=== PATIENT | male | born 1995 | race Caucasian/White ===

== ENCOUNTER 2020-06-19 22:40 | Emergency (ER) | payer OTHER, SELFPAY ==
[2020-06-19 22:41] VITALS: BP 158/83; PULSE 94; RESP 18; TEMP 36.3; O2SAT 98; BMI 28.7
--- NOTE | 2020-06-19 23:01 | ED.VISSUMM ---
- ER Visit Summary Date of Service: 06/19/20 Chief Complaint: Left third finger laceration History of Present Illness: The patient is a 24 M who presents with a finger laceration. Occurred at work about 1 hour ago. He was working with a piece of wire when he cut his left third finger. His last tetanus is unknown. He denies any numbness or tingling. He denies any loss of function to the finger. He denies any other injuries. Physical Examination: Signs are reviewed. Left hand exam reveals a 1.5 cm laceration of the left third finger on the radial side between the DIP and PIP joint. Sensation is intact distally. He has full range of motion without pain. Test Results: None performed Emergency Department Course and Treatment: Patient's tetanus was updated. Laceration was repaired per procedure note. Lidocaine was used to anesthetize area after cleansing with chlorhexidine. 3, 5?0 simple nylon sutures were placed. There was good wound approximation. Patient will have sutures out in 7 to 10 days. Worker's Compensation forms were filled out. Treatment Plan: [] Disposition: Discharge Impression: Left third finger laceration, 1.5 cm Laceration repair by ED physician. This note was generated with [employer] dictation software. It may contain incorrect words, spelling, and punctuation that were not noted in review of the chart prior to signing ED Disposition - Plan for ED Patient: Disposition: Home or Assisted Living Instructions: ED Laceration: All Closures Referrals: NOT,DEFINED [Primary Care Provider] -
[2020-06-19] MEDS: Lidocaine 1% (20 ml mdv) 20 ML Vial INFILT (23:04)
[2020-06-19] MEDS: Diphth,Pertuss(Acell),Tet Vac 0.5 ML Vial IM (23:11)
== END 2020-06-19 23:44 | disposition home or self-care (01) ==
LOC: ED 23:11
PROVIDERS: Emergency Provider Emergency Medicine
DX: S61.213A Laceration without foreign body of left middle finger without damage to nail, initial encounter (principal); Z23 Encounter for immunization; W26.8XXA Contact with other sharp object(s), not elsewhere classified, initial encounter; Y93.89 Activity, other specified; Y92.89 Other specified places as the place of occurrence of the external cause; Y99.0 Civilian activity done for income or pay
CPT/HCPCS: 12001; 90471; 90715; 99283

== ENCOUNTER → 2020-08-20 17:01 | Outpatient (CLI) | payer BC, SELFPAY ==
[2020-08-20 18:45] LABS: ALB/GLOB Ratio 1.1 RATIO (0.9-2.4); AST(SGOT) 29 U/L (15-37); Alanine Aminotransfer ALT/SGPT 79 U/L (16-61); Albumin, Serum 3.8 g/dL (3.2-5.0); Alkaline Phosphatase 81 U/L (45-117); Anion Gap 4 (5-15); BUN 11 mg/dL (7-18); BUN/Creat Ratio 11.6 RATIO (10-20); Calcium,Total 8.6 mg/dL (8.5-10.1); Chloride 108 mmol/L (98-107); Creatinine, Serum 0.94 mg/dL (0.70-1.30); EST Glomerular Filtration Rate 102 mL/min (>60); Est Glom Filt Rate - Afr Amer 123 mL/min (>60); Globulin 3.5 g/dL (2.2-4.2); Glucose 91 mg/dL (74-106); Potassium 3.8 mmol/L (3.5-5.1); Protein, Total 7.3 g/dL (6.4-8.2); Sodium Level 138 mmol/L (136-145)
[2020-08-21 10:03] LABS: HIV - WCH Non-Reactive (Nonreactive); Hepatitis B Surface Antibody Non-Reactive; Hepatitis B Surface Antigen Non-Reactive (Nonreactive); Hepatitis C Antibody Preliminary Reactive (Nonreactive)
[2020-08-27 12:08] LABS: Comment 1a (.)
[2020-08-27 13:15] LABS: HCV log 10 6.358 (.)
== END ==
PROVIDERS: PCP Family Medicine; Referring Provider Family Medicine; Visit Provider Family Medicine
DX: B19.20 Unspecified viral hepatitis C without hepatic coma (principal); F19.11 Other psychoactive substance abuse, in remission
CPT/HCPCS: 36415; 80053; 86703; 86706; 86803; 87340; 87521; 87522; 87902

== ENCOUNTER 2020-11-27 00:27 | Emergency (ER) | payer BC, SELFPAY ==
[2020-11-27 00:28] VITALS: BP 134/62; PULSE 71; RESP 16; TEMP 36.5; O2SAT 94; BMI 28.7
--- NOTE | 2020-11-27 00:45 | ED.VIS.DYS ---
HPI History of Present Illness Chief Complaint: Cough Narrative Narrative: 25-year-old male presenting with cough which started earlier yesterday. He states he laid down and has had consistent coughing. He feels like he is wheezing. He states he has a past medical history of asthma and has an albuterol inhaler at home and states this is not helped him significantly. Patient states that he has had to come to the ER previously for breathing treatments and steroids. He denies history of COPD. He does smoke half pack of cigarettes per day. He denies chest pain, palpitations, fever, chills, myalgias, change in taste or smell. He does not feel ill. PFSH PFSH Home Medications prednisone 50 mg PO DAILY 5 Days #25 tab 11/27/20 [Rx Last Taken Unknown] Allergy/AdvReac Type Severity Reaction Status Date / Time Penicillins Allergy Hives Verified 11/27/20 00:28 Sulfa (Sulfonamide Allergy Anaphylaxis Verified 11/27/20 00:28 Antibiotics) Surgical History (Updated 11/27/20 @ 00:33 by Ivonne Morales) History of appendectomy Social History Smoking Status: Current every day smoker tobacco type: cigarettes ROS ROS ED Constitutional Constitutional ED: Denies chills or fever(s) Eyes Eyes: Denies blurry vision or diplopia ENT ENT ED: Denies rhinorrhea or sore throat Cardiovascular Cardiovascular: Denies chest pain or palpitations Respiratory/Chest Respiratory/Chest: Reports cough and dyspnea; Denies sputum Gastrointestinal Gastrointestinal: Denies abdominal pain, nausea or vomiting Genitourinary Genitourinary ED: Denies dysuria or hematuria Musculoskeletal Musculoskeletal: Denies arthralgias or myalgias Integumentary Denies Abrasions or rash Neurologic Neurologic: Denies headache(s) or paresthesias EXAM Physical Exam Const Vital Signs: 11/27/20 00:28 11/27/20 00:55 11/27/20 00:56 Temperature 97.7 F L Temperature Source Temporal Pulse Rate 71 94 Respiratory Rate 16 18 Respiratory Effort Normal Short of Breath Normal Respiratory Depth Normal Normal Respiratory Pattern Normal Blood Pressure 134/62 H Blood Pressure Mean 86 Pulse Ox 94 94 Oxygen Delivery Method Room Air Room Air Room Air 11/27/20 01:55 Temperature Temperature Source Pulse Rate 82 Respiratory Rate 16 Respiratory Effort Respiratory Depth Respiratory Pattern Blood Pressure 153/72 H Blood Pressure Mean Pulse Ox 94 Oxygen Delivery Method Positive well nourished General Appearance ED: NAD SHANTELL Reports moist mucous membranes atraumatic Eyes PERRL and EOMs intact bilaterally Resp normal respiratory effort Auscultation: wheezes scattered wheezes Cardio regular rate and regular rhythm Neuro oriented x3 Sensorium / Orientation: alert Psych mental status grossly normal Thought Process: normal thought process Skin Lesions: no lesions Rashes: no rashes MDM MDM MDM Narrative Medical decision making narrative: Patient presenting with asthma exacerbation and states he is currently smoking about a half a pack a day. He is wheezing on initial exam. He is given prednisone and breathing treatments and feels improved. He does not want tested for COVID-19 as he does not have any viral symptoms. Chest x-ray on my interpretation shows no acute cardiopulmonary process. I do not believe the patient needs lab work and imaging. Patient counseled on discontinuing smoking. He will be discharged home with a burst of prednisone. He states he has albuterol inhaler does not need refill. Impression: #1 asthma exacerbation Radiography Diagnostic Testing: Radiology Impression Chest X-Ray 11/27/20 00:49 IMPRESSION: Normal x-ray examination of the chest. Electronically Signed: Sergey Villa DO at 1:17 EDT Tel , Service support , Discharge Plan Triage Chief Complaint: Cough ED Provider: Guero Butcher Dx/Rx/DC Orders Instructions: ED Asthma, Acute (Adult) Prescriptions: New prednisone 10 mg tablet 50 mg PO DAILY 5 Days Qty: 25 RF: 0 Primary Care Provider: Care Physician,No Primary Referrals: Aram Armenta MD [STAFF PHYSICIAN] - As Needed Care Physician,No Primary [Primary Care Provider] - Disposition Disposition: Home, Self Care Discharge Date/Time: 11/27/20 01:56
--- NOTE | 2020-11-27 00:49 | RAD_ITS ---
STUDY: X-RAY CHEST REASON FOR EXAM: Male, 25 years old. wheezing TECHNIQUE: Single AP portable view of the chest. COMPARISON: None. FINDINGS: The lungs are clear and expanded. There is no demonstrated pleural abnormality. Normal size heart. Normal mediastinum and jeff. Normal visualized pulmonary arteries. Normal visualized aortic arch and descending thoracic aorta. Normal visualized thoracic spine. Normal visualized ribs, clavicles, and shoulders. There is no demonstrated abnormality of the visualized soft tissue structures of the upper abdomen. RAD/Chest 1 View (Portable) IMPRESSION: Normal x-ray examination of the chest. Electronically Signed: Sergey Villa DO at 1:17 EDT Tel , Service support ,
[2020-11-27 00:55] VITALS: PULSE 94; RESP 18; O2SAT 94
[2020-11-27] MEDS: Albuterol 2.5 MG/3 ML VIAL.NEB. INHALATION (00:55)
[2020-11-27] MEDS: Ipratropium/Albuterol Sulfate 3 ML AMPUL.NEB INHALATION (00:55)
[2020-11-27] MEDS: predniSONE 20 MG Tablet 60 MG PO (00:55)
[2020-11-27 00:56] VITALS: O2SAT 95
--- NOTE | 2020-11-27 01:31 | CPS ---
x1 Albuterol given to pt. in ER as well
[2020-11-27 01:55] VITALS: BP 153/72; PULSE 82; RESP 16; O2SAT 94
== END 2020-11-27 01:56 | disposition home or self-care (01) ==
PROVIDERS: Emergency Provider Student in an Organized Health Care Education/Training Program
DX: J45.901 Unspecified asthma with (acute) exacerbation (principal); F17.210 Nicotine dependence, cigarettes, uncomplicated
CPT/HCPCS: 71045; 94640; 99251; 99283; G0463

== ENCOUNTER 2020-11-27 08:14 | Observation (INO) | payer BC, SELFPAY ==
[2020-11-27] VITALS (13 sets, daily range): BP systolic 145–179; BP diastolic 79–92; PULSE 74–130; RESP 14–24; TEMP 36.3–36.8; O2SAT 91–94; BMI 28.7; BMI 29.7; BMI 29.3
[2020-11-27] MEDS: predniSONE 20 MG Tablet 60 MG PO (08:53)
--- NOTE | 2020-11-27 09:00 | RAD_ITS ---
STUDY: X-RAY CHEST REASON FOR EXAM: Male, 25 years old. sob TECHNIQUE: Single AP portable view of the chest. COMPARISON: 11/27/2020 FINDINGS: The lungs are clear and expanded. There is no demonstrated pleural abnormality. Normal size heart. Normal mediastinum and jeff. Normal visualized pulmonary arteries. Normal visualized aortic arch and descending thoracic aorta. Normal visualized thoracic spine. Normal visualized ribs, clavicles, and shoulders. There is no demonstrated abnormality of the visualized soft tissue structures of the upper abdomen. RAD/Chest 1 View (Portable) IMPRESSION: Normal x-ray examination of the chest. Electronically Signed: Lawrence Morales MD at 9:19 EDT Tel , Service support ,
[2020-11-27] MEDS: Ipratropium/Albuterol Sulfate 3 ML AMPUL.NEB INHALATION ×4 (09:06→23:06)
[2020-11-27] MEDS: Albuterol 2.5 MG/3 ML VIAL.NEB. INHALATION ×3 (09:06→12:27)
--- NOTE | 2020-11-27 13:23 | EDS_ITS ---
HPI History of Present Illness Chief Complaint: Shortness of Breath Informant: patient Onset/Context/Timing Onset: Days (4 days) Context: Gradual Onset Current Severity: Moderate Maximum Severity: Moderate Narrative Narrative: Patient presents secondary to shortness of breath and wheezing. Patient states he developed a cough 3 days ago. He said increasing shortness of breath. He does have a history of asthma and feels that this is an asthma exacerbation. Patient was seen in the ER last night treated with a aerosols and steroids. He did not want a Covid swab at that time but did agree to one today. No fever or chills. [facility] Medical History Asthma Home Medications prednisone 50 mg PO DAILY 5 Days #25 tab 11/27/20 [Rx Last Taken 11/26/20] Allergy/AdvReac Type Severity Reaction Status Date / Time Penicillins Allergy Hives Verified 11/27/20 08:26 Sulfa (Sulfonamide Allergy Anaphylaxis Verified 11/27/20 08:26 Antibiotics) Surgical History History of appendectomy Social History Smoking Status: Current every day smoker tobacco type: cigarettes ROS ROS ED Constitutional Constitutional ED: Denies chills or fever(s) Eyes Eyes: Denies change in vision ENT ENT ED: Denies sore throat Cardiovascular Cardiovascular: Reports other Details: Chest tightness Respiratory/Chest Respiratory/Chest: Reports cough and dyspnea Gastrointestinal Gastrointestinal: Denies abdominal pain, diarrhea, nausea or vomiting Genitourinary Genitourinary ED: Denies dysuria Musculoskeletal Musculoskeletal: Denies back pain Integumentary Denies rash Neurologic Neurologic: Denies headache(s) or weakness Psychiatric Psychiatric: Denies anxiety or depression Endocrine Endocrinology: Denies polydipsia or polyuria Allergic/Immunologic Allergic/Immunologic ED: Denies urticaria EXAM Physical Exam Const Vital Signs: 11/27/20 08:15 11/27/20 08:27 11/27/20 09:11 Temperature 97.4 F L Temperature Source Temporal Pulse Rate 120 H 122 H Respiratory Rate 14 24 H Respiratory Effort Short of Breath Short of Breath Respiratory Depth Normal Respiratory Pattern Tachypnea Tachypnea Blood Pressure 145/92 H Blood Pressure Mean 109 Pulse Ox 93 91 Oxygen Delivery Method Room Air Room Air Room Air 11/27/20 09:29 11/27/20 10:03 11/27/20 12:29 Temperature Temperature Source Pulse Rate 129 H 130 H Respiratory Rate 20 H 18 Respiratory Effort Respiratory Depth Respiratory Pattern Blood Pressure Blood Pressure Mean Pulse Ox 93 94 92 Oxygen Delivery Method Room Air Room Air Room Air Positive well nourished and well developed General Appearance ED: well developed HEENT Reports normocephalic and head/scalp atraumatic Eyes PERRL and EOMs intact bilaterally Neck supple Chest Wall inspection of chest normal and palpation of chest normal Resp normal respiratory effort Auscultation: wheezes expiratory wheezes, inspiratory wheezes and throughout Cardio regular rhythm Rate: tachycardic GI normal to inspection, nondistended, normoactive bowel sounds Palpation: soft Back/Spine no CVA tenderness Extremity normal to inspection Neuro oriented x3 and no sensory deficits noted Sensorium / Orientation: alert Motor Exam: strength 5/5 throughout Psych mental status grossly normal Skin no rashes or lesions noted MDM MDM MDM Narrative Medical decision making narrative: Patient was given prednisone along with DuoNeb and albuterol treatments. Portable chest x-ray ordered. Covid swab obtained. Lab Data Attestation: I reviewed the patient's lab results. Labs: Covid swab negative Radiography Chest X-Ray - ED: 1 View, Read by ED Physician, Normal, Heart, Lungs and Mediastinum Diagnostic Testing: Radiology Impression Chest X-Ray 11/27/20 09:00 IMPRESSION: Normal x-ray examination of the chest. Electronically Signed: Lawrence Morales MD at 9:19 EDT Tel , Service support , Treatment and Re-Evaluation Comments:: On repeat examination patient's wheezing is improved but still significant. We let him to rest for a while and then repeated another albuterol treatment. At this time patient continues to have significant wheezing. I do feel he will benefit from observation overnight for [id number] breathing treatments and steroids. I will speak with the hospitalist. Discharge Plan Triage Chief Complaint: Shortness of Breath ED Provider: Amanda Bañuelos Dx/Rx/DC Orders Clinical Impression: Asthma exacerbation Prescriptions: No Action prednisone 10 mg tablet 50 mg PO DAILY 5 Days Qty: 25 RF: 0 Primary Care Provider: Care Physician,No Primary Referrals: Care Physician,No Primary [Primary Care Provider] - Disposition Disposition: Acute Care Hospital [facility]
--- NOTE | 2020-11-27 13:50 | HP.PCM.HOS_ITS ---
HPI - General General Date of Admission: 11/27/20 Date of Service: 11/27/20 Chief Complaint: shortness of breath HPI Narrative ELIZABETH BROWNLEE, is a 25 M who presents presents with 1 day of shortness of breath. Began yesterday. Patient had difficulty catching his breath and tried breathing treatments at home without relief. Presented to the emergency room and discharged with prednisone only to return again with worsening shortness of breath. Patient received prednisone as well as aerosols and is still actively wheezing. The hospital service contacted for admission for asthma exacerbation. Patient states that this is similar to his prior exacerbations of asthma. [facility] Medical History (Updated 11/27/20 @ 13:[address] Venkatesh Alfaro DO) Asthma Asthma Home Medications prednisone 50 mg PO DAILY 5 Days #25 tab 11/27/20 [Rx Last Taken 11/26/20] Allergy/AdvReac Type Severity Reaction Status Date / Time Penicillins Allergy Hives Verified 11/27/20 08:26 Sulfa (Sulfonamide Allergy Anaphylaxis Verified 11/27/20 08:26 Antibiotics) Family History (Updated 11/27/20 @ 13:[address] Venkatesh Alfaro DO) Other COPD (chronic obstructive pulmonary disease) Surgical History History of appendectomy Social History (Updated 11/27/20 @ 13:[address] Venkatesh Alfaro DO) Smoking Status: Light Smoker (<10/day) alcohol intake: current alcohol intake frequency: a few times a week substance use type: marijuana ROS ROS Narrative No fever or chills. No loss of taste. Patient has chronic anosmia but no change without recently. Denies any sick contacts or any contacts with COVID- 19. Is coughing up some productive phlegm that has a sick taste. All review of systems were negative except as mentioned above in the history of present illness and the other review of systems. Vital Signs Vital Signs Vital Signs: 11/27/20 08:15 11/27/20 08:27 11/27/20 09:11 Temperature 36.3 C L Temperature Source Temporal Pulse Rate 120 H 122 H Respiratory Rate 14 24 H Respiratory Effort Short of Breath Short of Breath Respiratory Depth Normal Respiratory Pattern Tachypnea Tachypnea Blood Pressure 145/92 H Blood Pressure Mean 109 Pulse Ox 93 91 Oxygen Delivery Method Room Air Room Air Room Air 11/27/20 09:29 11/27/20 10:03 11/27/20 12:29 Temperature Temperature Source Pulse Rate 129 H 130 H Respiratory Rate 20 H 18 Respiratory Effort Respiratory Depth Respiratory Pattern Blood Pressure Blood Pressure Mean Pulse Ox 93 94 92 Oxygen Delivery Method Room Air Room Air Room Air Weight Weight: 94 kg Body Mass Index (BMI) 29.7 Physical Exam Const alert Resp Auscultation: wheezes throughout Cardio regular rate, regular rhythm, S1 normal heart sound and S2 normal heart sound GI normal to inspection, nondistended, normoactive bowel sounds, soft to palpation and non-tender Extremity normal to inspection Results Lab / Micro Data Attestation: I reviewed the patient's lab results. Micro: Microbiology 11/27/20 08:50 Mucosa - Nasopharyngeal SARS-CoV-2 Antigen (Rapid) - Final Radiology Impression Chest X-Ray 11/27/20 09:00 IMPRESSION: Normal x-ray examination of the chest. Electronically Signed: Lawrence Morales MD at 9:19 EDT Tel , Service support , Assessment & Plan Assessment/Plan (1) Asthma exacerbation: QUALIFIERS: Asthma severity: moderate Asthma persistence: unspecified Qualified Code(s): J45.901 - Unspecified asthma with (acute) exacerbation PLAN: 1. Acute asthma exacerbation Failed outpatient therapy with prednisone. Currently on room air but still with profound wheezing and tachycardia though some tachycardia may be related with the bronchodilators Plan is to change steroids over to methylprednisolone as well as continue with bronchodilators with DuoNeb scheduled and as needed albuterol Rapid Covid test was negative but will check a PCR to confirm. Patient is open to getting the vaccine while he was here, this is assuming his Covid PCR is negative. 2. VTE prophylaxis: Low risk and not indicated. Charges/Coding Visit Charges OBSV E&M: 20228 Initial observation care L2
[2020-11-27 14:32] LABS: Absolute Lymphocyte Count 0.48 X10^3/uL (0.83-4.51); Basophil# 0.02 X10^3/uL; Basophil% 0.1 % (0-1); Hematocrit 45.8 % (40-54); Hemoglobin 15.4 g/dL (13.0-16.5); Lymphocyte # 0.48 X10^3/ul (0.83-4.51); Lymphocyte % 3.3 % (19-41); Mean Corp Hgb Conc 33.6 g/dL (32-36); Mean Corpuscular Hgb 29.4 pg (27.0-32.0); Mean Corpuscular Volume 87.6 fL (80-94); Mean Platelet Vol. 10.5 fl (6.2-12.0); Monocyte# 0.17 X10^3/uL; Monocyte% 1.2 % (0-10); NRBC Flagged by Analyzer 0 % (0-5); Neutrophil # 14.01 X10^3/uL (2.7-7.7); Neutrophil % 94.9 % (47-70); POSITIVE DIFFERENTIAL YES; Platelet Count 237 K/mm3 (150-450); RBC Distribution Width CV 12.8 % (11.6-14.6); RBC Distribution Width SD 41.5 fl (35.1-43.9); Red Blood Count 5.23 M/mm3 (4.6-6.2); White Blood Count 14.8 K/mm3 (4.4-11.0)
[2020-11-27] MEDS: 0.9% Saline Lock 10 ML Syringe IV ×2 (14:33→22:02)
[2020-11-27 14:43] LABS: Differential Indicated SCAN CRITERIA MET
[2020-11-27 14:54] LABS: Anion Gap 11 (5-15); BUN 14 mg/dL (7-18); BUN/Creat Ratio 12.1 RATIO (10-20); Calcium,Total 8.9 mg/dL (8.5-10.1); Chloride 103 mmol/L (98-107); Creatinine, Serum 1.16 mg/dL (0.70-1.30); EST Glomerular Filtration Rate 80 mL/min (>60); Est Glom Filt Rate - Afr Amer 97 mL/min (>60); Estimated Creatinine Clearance 98.77 ml/min; Glucose 146 mg/dL (74-106); Potassium 3.6 mmol/L (3.5-5.1); Sodium Level 137 mmol/L (136-145)
--- NOTE | 2020-11-27 16:19 | NURSING ---
emergency documentation approved by NELLIEO started 11/25/20 @ [id number]
[2020-11-27 17:14] LABS: Probe Check PASS; Specimen Processing Control PASS
[2020-11-27] MEDS: Mag Hydrox/Al Hydrox/Simeth 30 ML UDC 15 ML PO (18:15)
[2020-11-27] MEDS: Acetaminophen 325 MG Tablet 650 MG PO (21:55)
[2020-11-28 02:25] VITALS: BP 127/82; PULSE 113; RESP 18; TEMP 36.8; O2SAT 94
[2020-11-28 03:20] VITALS: PULSE 120; RESP 18; O2SAT 97
[2020-11-28] MEDS: Albuterol 2.5 MG/3 ML VIAL.NEB. INHALATION (03:20)
[2020-11-28] MEDS: 0.9% Saline Lock 10 ML Syringe IV (06:14)
[2020-11-28 07:19] VITALS: O2SAT 95
[2020-11-28 08:33] VITALS: BP 141/71; PULSE 96; RESP 11; TEMP 36.7; O2SAT 93
[2020-11-28] MEDS: COVID-19 VAC,AD26(JANSSEN)/PF 0.5 ML SYRINGE IM (10:16)
[2020-11-28] MEDS: Ipratropium/Albuterol Sulfate 3 ML AMPUL.NEB INHALATION (11:14)
--- NOTE | 2020-11-28 11:19 | PCM.DC ---
Discharge Instructions Diet Discharge Diet: No restrictions Dressing / Incision Call your doctor if you observe: Shortness of breath Follow Up Care Test Results: Test results from this visit will be discussed in further detail at your follow-up appointment, if applicable. Discharge Plan Admission Admit Date/Time: 11/27/20 13:50 Primary Reason for Your Visit: Asthma exacerbation Attending Provider: Venkatesh Alfaro Primary Care Provider: Care Physician,No Primary Discharge Orders/Prescriptions Prescriptions: New prednisone 10 mg tablet 40 mg PO DAILY 5 Days Qty: 20 RF: 0 Continued albuterol sulfate 90 mcg/actuation HFA aerosol inhaler 2 puff INHALATION Q4H PRN PRN (Reason: shortness of breath) Qty: 8.5 RF: 0 Discontinued prednisone 10 mg tablet 50 mg PO DAILY 5 Days Qty: 25 RF: 0 Referrals / Follow Up: Price Armas MD [STAFF PHYSICIAN] - Within 1 Month (Asthma follow up.) Care Physician,No Primary [Primary Care Provider] - Within 2 Weeks (follow up with PCP at earliest convenience.) Disposition Disposition (needs filled in before D/C Order can be placed): Home, Self Care
--- NOTE | 2020-11-28 11:20 | PCM.DC.SUM ---
Providers Date of Admission: 11/27/20 Primary Care Physician: Tri Primary Care Phys Reason For Visit: ASTHMA EXACERBATION Diagnosis Discharge Diagnosis (1) Asthma exacerbation: Status: Acute Code(s): J45.901 - Unspecified asthma with (acute) exacerbation Qualifiers: Asthma severity: moderate Asthma persistence: unspecified Qualified Code(s): J45.901 - Unspecified asthma with (acute) exacerbation Medications at Discharge Home Medications albuterol sulfate 2 puff INHALATION Q4H PRN PRN #8.5 g 11/28/20 prednisone 40 mg PO DAILY 5 Days #20 tab 11/28/20 Hospital Course Operations None Procedures None Summary of Care Provided Minutes Spent on Discharge: 30 Hospital Course: 25-year-old male with known asthma presents with worsening shortness of breath. Patient had been to the emergency room twice in the same day but is still wheezing. Patient was on room air but patient was brought in and started on methylprednisone as well as bronchodilators and is improved. Still has some audible wheezing but much improved at this time. Patient will be given prescription for prednisone burst over 5 days of 40 mg as well as an albuterol metered-dose inhaler. Patient advised follow-up pulmonology for further asthma evaluation. Discuss with the patient about the Covid vaccine and that he did agree to receive that and did receive it. Patient received a [employer] COVID-19 vaccine today. Patient discharged home in stable condition Physical Exam Const alert Resp normal respiratory effort, no retractions and no use of accessory muscles Resp Narrative: Decreased wheezes Cardio regular rate, regular rhythm, S1 normal heart sound and S2 normal heart sound GI normal to inspection, nondistended, normoactive bowel sounds, non-tender and non-distended Weight / BMI Weight Weight: 92.76 kg Body Mass Index (BMI) 29.3 ABG / Lab / Microbiology Data Result Diagrams: 11/27/20 14:16 11/27/20 14:16 Laboratory: Laboratory Results - last 24 hr 11/27/20 14:16: WBC 14.8 H, RBC 5.23, Hgb 15.4, Hct 45.8, MCV 87.6, MCH 29.4, MCHC 33.6, RDW Std Deviation 41.5, RDW Coeff of [place] 12.8, Plt Count 237, MPV 10.5, Immature Gran % (Auto) 0.500, Neut % (Auto) 94.9 H, Lymph % (Auto) 3.3 L, [place] % (Auto) 1.2, Eos % (Auto) 0.0, Baso % (Auto) 0.1, Absolute Neuts (auto) 14.0 H, Absolute Lymphs (auto) 0.48 L, Nucleated RBC % 0, Differential Comment COMMENT 11/27/20 14:16: Sodium 137, Potassium 3.6, Chloride 103, Carbon Dioxide 23.0, Anion Gap 11, BUN 14, Creatinine 1.16, Estim Creat Clear Calc 98.77, Est GFR (MDRD) Af Amer 97, Est GFR (MDRD) Non-Af 80, BUN/Creatinine Ratio 12.1, Glucose 146 H, Calcium 8.9 11/27/20 15:05: COVID-19 (RICKEY) Negative Microbiology: Microbiology 11/27/20 08:50 Mucosa - Nasopharyngeal SARS-CoV-2 Antigen (Rapid) - Final D/C Instructions Discharge Diet: No restrictions Call your doctor if you observe: Shortness of breath Meaningful Use Info Meaningful Use Diagnoses (Choose all that apply): None applicable Discharge Plan Admission Admit Date/Time: 11/27/20 13:50 Primary Reason for Your Visit: Asthma exacerbation Attending Provider: Venkatesh Alfaro Primary Care Provider: Care Physician,Tri Primary Instructions Additional Instructions / Restrictions: Patient Problems: Altered Health Status related to Hospitalization Patient Goals: *Optimal Level of Health *Keep Appointments *Medication Compliance *Remain Safe Discharge Orders/Prescriptions Prescriptions: New prednisone 10 mg tablet 40 mg PO DAILY 5 Days Qty: 20 RF: 0 Continued albuterol sulfate 90 mcg/actuation HFA aerosol inhaler 2 puff INHALATION Q4H PRN PRN (Reason: shortness of breath) Qty: 8.5 RF: 0 Discontinued prednisone 10 mg tablet 50 mg PO DAILY 5 Days Qty: 25 RF: 0 Referrals / Follow Up: Price Armas MD [STAFF PHYSICIAN] - Within 1 Month (Asthma follow up.) Care Physician,No Primary [Primary Care Provider] - Within 2 Weeks (follow up with PCP at earliest convenience.) Disposition Disposition (needs filled in before D/C Order can be placed): Home, Self Care Charges/Coding Visit Charges OBSV E&M: 05222 Observation care discharge
[2020-11-28 11:27] VITALS: PULSE 112; RESP 20
== END 2020-11-28 08:57 | disposition home or self-care (01) ==
LOC: ED 13:26 → PCU 14:09
PROVIDERS: Emergency Provider Emergency Medicine
DX: J45.901 Unspecified asthma with (acute) exacerbation (principal); Z23 Encounter for immunization; F17.210 Nicotine dependence, cigarettes, uncomplicated
CPT/HCPCS: 0031A; 71045; 80048; 85025; 87426; 87635; 91303; 94640; 96374; 96376; 99218; 99251; 99283; 99406; U0005; A4216; G0378; G0463; U0003